=== PATIENT | female | born 1975 | race African-American/Black ===

== ENCOUNTER 2021-02-20 23:25 | Emergency (ER) | payer MEDICAID, SELFPAY ==
--- NOTE | ~2021-02-20 | CT_ITS ---
EXAMINATION: CT ABDOMEN AND PELVIS WITHOUT CONTRAST CLINICAL INFORMATION: Right upper quadrant/epigastric pain COMPARISON: None TECHNIQUE: Multidetector volumetric imaging was performed from the superior aspect of the liver through the pubic symphysis. Sagittal and coronal reformatted images were obtained on the technologist's workstation. This CT examination was performed using dose optimization techniques as appropriate, variously including the following: *Automated exposure control *Adjustment of mA and/or kV according to patient size (this includes techniques or standardized protocols for targeted exams where dose is matched to indication/reason for exam; i.e. extremities or head) *Use of iterative reconstruction technique DLP: 660 mGy-cm FINDINGS: LUNG BASES: The visualized lung bases are unremarkable. LIVER, GALLBLADDER, AND BILIARY TREE: The liver is normal in size, shape, and attenuation. No focal hepatic lesion or biliary ductal dilatation is present. Cholelithiasis. Gallbladder is contracted. No pericholecystic inflammation. PANCREAS: Unremarkable. SPLEEN: Unremarkable. ADRENAL GLANDS: Unremarkable. KIDNEYS AND URETERS: The kidneys are normal in size, shape, and attenuation. No hydronephrosis, hydroureter, or calculi seen. No perinephric stranding. BLADDER: Unremarkable. GASTROINTESTINAL TRACT: The small and large bowel are unremarkable. The appendix is unremarkable. ABDOMINAL WALL: No significant hernia is appreciated. LYMPH NODES: Normal. VASCULAR: There is a 1.3 cm right renal artery aneurysm and a 0.9 centimeter left renal artery aneurysm. Aorta is normal caliber. PELVIC VISCERA: Uterus and adnexa grossly unremarkable. OSSEOUS STRUCTURES: Unremarkable. CT/CT abdomen pelvis wo con IMPRESSION: Cholelithiasis without CT evidence of cholecystitis. Bilateral renal artery aneurysms as described.
--- NOTE | ~2021-02-20 | XR_ITS ---
EXAMINATION: XR CHEST CLINICAL INFORMATION: Cough COMPARISON: None TECHNIQUE: 2 views of the chest were obtained. FINDINGS: No significant abnormality is noted involving the heart, lungs, mediastinum, bony thorax or soft tissues. XR/XR chest 2V IMPRESSION: Unremarkable examination.
[2021-02-21 02:09] VITALS: BP 183/69; PULSE 82; RESP 16; O2SAT 100
[2021-02-21 02:14] VITALS: BP 154/66; PULSE 83; RESP 22; TEMP 37.1; O2SAT 99; BMI 28.9
[2021-02-21 02:36] LABS: Basophils Absolute Auto 0.1 X10*3/uL (0.0-0.2); Basophils Percent Auto 0.5 % (0-2); Eosinophils Absolute Auto 0.2 X10*3/uL (0.0-0.4); Eosinophils Percent Auto 1.3 % (0-4); Hematocrit 28.3 % (37-47); Hemoglobin 9.1 g/dl (12.0-16.0); Imm Gran Abs Auto 0.11 X10*3/uL (0.00-0.03); Imm Gran Pct Auto 0.8 % (0.0-0.4); Lymphocytes Absolute Auto 2.1 X10*3/uL (1.2-4.9); Lymphocytes Percent Auto 15.9 % (20-40); Mean Corpuscular HGB Conc 32.2 g/dl (31.0-35.0); Mean Corpuscular Hemoglobin 25.3 pg (27.0-33.0); Mean Corpuscular Volume 78.6 fL (80-98); Mean Platelet Volume 11.6 fL (9.4-12.3); Monocytes Absolute Auto 0.9 X10*3/uL (0.1-1.2); Neutrophils Percent Auto 74.5 % (45-73); PLT CLUMP 1; Red Cell Distribution Width 15.3 % (11.0-16.0); SCAN SMEAR FLAG 1
[2021-02-21 02:38] LABS: White Blood Count 13.4 X10*3/uL (4.8-10.8)
[2021-02-21 02:39] LABS: MANUAL DIFF FLAG NO
[2021-02-21 02:52] LABS: Platelet Count 216 X10*3/uL (160-400)
[2021-02-21 02:58] LABS: Alanine Aminotransferase 61 U/L (0-31); Albumin Level 2.5 g/dL (3.5-5.0); Alkaline Phosphatase 326 U/L (39-117); Anion Gap 14 (12-20); Aspartate Amino Transferase 33 U/L (5-31); Bilirubin Total 0.2 mg/dL (0.0-1.0); Blood Urea Nitrogen 27 mg/dL (9-16); Calcium 8.1 mg/dL (8.4-10.2); Carbon Dioxide 14 mmol/L (22-29); Chloride 104 mmol/L (96-108); Creatinine Clr Calc Pharmacy 26.6; Estimated Glomerular Filt Rate 17; Glucose Random 565 mg/dL (60-115); Potassium 3.7 mmol/L (3.3-5.1); Sodium 128 mmol/L (135-145); Total Protein 5.3 g/dL (6.5-8.0)
--- NOTE | 2021-02-21 02:58 | ED_ITS ---
HPI - Abdominal Pain General Chief Complaint: Abdominal Pain Stated Complaint: abd and chest pain Time Seen by Provider: 02/21/21 02:56 Source: patient Mode of arrival: ambulatory History of Present Illness HPI narrative: 45-year-old female presents with right upper quadrant, epigastric pain since this morning with nausea but no vomiting and states that the pain is sharp in nature and radiates into her right infra scapular area and that this is the 1st time that she has had this pain. She also states that she has had some burning sensation up into her esophagus but otherwise denies any fever or chills, shortness of breath, chest pain/palpitations or diarrhea. Related Data Previous Rx's Medication Instructions Recorded cefixime 400 mg capsule 400 mg PO DAILY 10 Days #10 cap 02/21/21 Allergies Allergy/AdvReac Type Severity Reaction Status Date / Time No Known Allergies Allergy Verified 02/21/21 02:13 Review of Systems Review of Systems Pertinent positives and negatives as stated in HPI 10 point review of systems is otherwise negative. Physical Exam Vital Signs: Vital Signs: Last Vital Signs Temp 98.7 F 02/21/21 02:14 Pulse 72 02/21/21 05:39 Resp 16 02/21/21 05:39 BP 122/49 L 02/21/21 05:39 Pulse Ox 100 02/21/21 04:00 Body Mass Index 28.9 VITAL SIGNS: Reviewed. GENERAL: Well developed, well nourished, in no acute distress. HEAD: Normocephalic/atraumatic EYES: PERRLA, EOMI EARS: Ext canals without abnormality NOSE: Nares patent bilateral OROPHARYNX: no oral lesions noted, posterior pharynx clear LUNGS: Normal breath sounds. No adventitious sounds or accessory muscle use. SpO2<99> CARDIOVASCULAR: Regular rate and rhythm without noted murmurs, no JVD or lower extremity edema. ABDOMEN: Soft, tenderness right upper quadrant/epigastric non-distended with bowel sounds Prosthetic leg SKIN: Inspection of the skin reveals no rashes NEUROLOGIC: Alert and oriented x 4. Strength and sensation to light touch were grossly intact x 4. Course Course Course Narrative: 45-year-old female with history and clinical presentation consistent with cholecystitis, choledocholithiasis with possible pancreatitis. On review of investigations there are no acute findings to suggest any gallbladder pathologies and instead appears to be a pyelonephritis. Patient received initial antibiotics in the emergency room and will be discharged with remaining course. Patient was IV fluid resuscitated and repeat BMP showed significant improvement. Patient received 10 units of subcu insulin for hypergl ycemia and otherwise negative for DKA or HHS. She was discharged home in stable condition MDM - Abdominal Pain Lab Data Result diagrams: 02/21/21 02:31 02/21/21 05:56 Labs: Lab Results 02/21/21 02/21/21 02/21/21 Range/Units 02:31 02:31 03:03 WBC 13.4 H (4.8-10.8) X10*3/uL RBC 3.60 L (4.20-5.50) X10*6/uL Hgb 9.1 L (12.0-16.0) g/dl Hct 28.3 L (37-47) % MCV 78.6 L (80-98) fL MCH 25.3 L (27.0-33.0) pg MCHC 32.2 (31.0-35.0) g/dl RDW 15.3 (11.0-16.0) % Plt Count 216 (160-400) X10*3/uL MPV 11.6 (9.4-12.3) fL Immature Gran % (Auto) 0.8 H (0.0-0.4) % Neut % (Auto) 74.5 H (45-73) % Lymph % (Auto) 15.9 L (20-40) % [place] % (Auto) 7.0 (2-11) % Eos % (Auto) 1.3 (0-4) % Baso % (Auto) 0.5 (0-2) % Lymph # (Auto) 2.1 (1.2-4.9) X10*3/uL [place] # (Auto) 0.9 (0.1-1.2) X10*3/uL Eos # (Auto) 0.2 (0.0-0.4) X10*3/uL Baso # (Auto) 0.1 (0.0-0.2) X10*3/uL Abs Immat Gran (auto) 0.11 H (0.00-0.03) X10*3/uL Absolute Neuts (auto) 10.0 H (2.0-8.3) X10*3/uL Absolute Nucleated RBC 0.000 (0.0-0.012) X10*3/uL Nucleated RBC % (auto) 0.0 (0.0-0.2) /100WBC Sodium 128 L (135-145) mmol/L Potassium 3.7 (3.3-5.1) mmol/L Chloride 104 (96-108) mmol/L Carbon Dioxide 14 L (22-29) mmol/L Anion Gap 14 (12-20) BUN 27 H (9-16) mg/dL Creatinine 3.00 H (0.5-1.4) mg/dL Estim Creat Clear Calc 26.6 Estimated GFR 17 POC Glucose (60-115) mg/dL Random Glucose 565 H* (60-115) mg/dL Lactic Acid (0.5-2.0) mmol/L Calcium 8.1 L (8.4-10.2) mg/dL Total Bilirubin 0.2 (0.0-1.0) mg/dL AST 33 H (5-31) U/L ALT 61 H (0-31) U/L Alkaline Phosphatase 326 H (39-117) U/L Total Protein 5.3 L (6.5-8.0) g/dL Albumin 2.5 L (3.5-5.0) g/dL Lipase 13 (8-78) U/L Urine Color YELLOW Urine Appearance CLOUDY Urine pH 6.0 (5.0-8.0) Ur Specific [place] 1.010 (1.005-1.025) Urine Protein 3+ H (NEG-TRACE) MG/DL Urine Glucose (UA) >=1000 H (NEG) MG/DL Urine Ketones NEG (NEG) MG/DL Urine Blood 2+ H (NEG) Urine Nitrite NEG (NEG) Ur Leukocyte Esterase NEG (NEG) Urine RBC 0 (0) /HPF Urine WBC 50-75 H (0-4) /HPF Ur Squamous Epith Cells 1+ /LPF Urine Bacteria 3+ /LPF Urine Test (NEGATIVE) Acetone, Qual Negative (Negative) COVID-19 ([facility]) (Negative) COVID-19 Clin Com 02/21/21 02/21/21 02/21/21 Range/Units 03:03 03:15 03:15 WBC (4.8-10.8) X10*3/uL RBC (4.20-5.50) X10*6/uL Hgb (12.0-16.0) g/dl Hct (37-47) % MCV (80-98) fL MCH (27.0-33.0) pg MCHC (31.0-35.0) g/dl RDW (11.0-16.0) % Plt Count (160-400) X10*3/uL MPV (9.4-12.3) fL Immature Gran % (Auto) (0.0-0.4) % Neut % (Auto) (45-73) % Lymph % (Auto) (20-40) % [place] % (Auto) (2-11) % Eos % (Auto) (0-4) % Baso % (Auto) (0-2) % Lymph # (Auto) (1.2-4.9) X10*3/uL [place] # (Auto) (0.1-1.2) X10*3/uL Eos # (Auto) (0.0-0.4) X10*3/uL Baso # (Auto) (0.0-0.2) X10*3/uL Abs Immat Gran (auto) (0.00-0.03) X10*3/uL Absolute Neuts (auto) (2.0-8.3) X10*3/uL Absolute Nucleated RBC (0.0-0.012) X10*3/uL Nucleated RBC % (auto) (0.0-0.2) /100WBC Sodium (135-145) mmol/L Potassium (3.3-5.1) mmol/L Chloride (96-108) mmol/L Carbon Dioxide (22-29) mmol/L Anion Gap (12-20) BUN (9-16) mg/dL Creatinine (0.5-1.4) mg/dL Estim Creat Clear Calc Estimated GFR POC Glucose (60-115) mg/dL Random Glucose (60-115) mg/dL Lactic Acid 1.2 (0.5-2.0) mmol/L Calcium (8.4-10.2) mg/dL Total Bilirubin (0.0-1.0) mg/dL AST (5-31) U/L ALT (0-31) U/L Alkaline Phosphatase (39-117) U/L Total Protein (6.5-8.0) g/dL Albumin (3.5-5.0) g/dL Lipase (8-78) U/L Urine Color Urine Appearance Urine pH (5.0-8.0) Ur Specific [place] (1.005-1.025) Urine Protein (NEG-TRACE) MG/DL Urine Glucose (UA) (NEG) MG/DL Urine Ketones (NEG) MG/DL Urine Blood (NEG) Urine Nitrite (NEG) Ur Leukocyte Esterase (NEG) Urine RBC (0) /HPF Urine WBC (0-4) /HPF Ur Squamous Epith Cells /LPF Urine Bacteria /LPF Urine Test NEGATIVE (NEGATIVE) Acetone, Qual (Negative) COVID-19 ([facility]) Negative (Negative) COVID-19 Clin Com See Note 02/21/21 02/21/21 02/21/21 Range/Units 05:51 05:56 07:48 WBC (4.8-10.8) X10*3/uL RBC (4.20-5.50) X10*6/uL Hgb (12.0-16.0) g/dl Hct (37-47) % MCV (80-98) fL MCH (27.0-33.0) pg MCHC (31.0-35.0) g/dl RDW (11.0-16.0) % Plt Count (160-400) X10*3/uL MPV (9.4-12.3) fL Immature Gran % (Auto) (0.0-0.4) % Neut % (Auto) (45-73) % Lymph % (Auto) (20-40) % [place] % (Auto) (2-11) % Eos % (Auto) (0-4) % Baso % (Auto) (0-2) % Lymph # (Auto) (1.2-4.9) X10*3/uL [place] # (Auto) (0.1-1.2) X10*3/uL Eos # (Auto) (0.0-0.4) X10*3/uL Baso # (Auto) (0.0-0.2) X10*3/uL Abs Immat Gran (auto) (0.00-0.03) X10*3/uL Absolute Neuts (auto) (2.0-8.3) X10*3/uL Absolute Nucleated RBC (0.0-0.012) X10*3/uL Nucleated RBC % (auto) (0.0-0.2) /100WBC Sodium 131 L (135-145) mmol/L Potassium 3.3 (3.3-5.1) mmol/L Chloride 108 (96-108) mmol/L Carbon Dioxide 16 L (22-29) mmol/L Anion Gap 10 L (12-20) BUN 24 H (9-16) mg/dL Creatinine 2.77 H (0.5-1.4) mg/dL Estim Creat Clear Calc 28.8 Estimated GFR 18 POC Glucose 408 H* 369 H* (60-115) mg/dL Random Glucose 466 H* (60-115) mg/dL Lactic Acid (0.5-2.0) mmol/L Calcium 7.5 L D (8.4-10.2) mg/dL Total Bilirubin (0.0-1.0) mg/dL AST (5-31) U/L ALT (0-31) U/L Alkaline Phosphatase (39-117) U/L Total Protein (6.5-8.0) g/dL Albumin (3.5-5.0) g/dL Lipase (8-78) U/L Urine Color Urine Appearance Urine pH (5.0-8.0) Ur Specific [place] (1.005-1.025) Urine Protein (NEG-TRACE) MG/DL Urine Glucose (UA) (NEG) MG/DL Urine Ketones (NEG) MG/DL Urine Blood (NEG) Urine Nitrite (NEG) Ur Leukocyte Esterase (NEG) Urine RBC (0) /HPF Urine WBC (0-4) /HPF Ur Squamous Epith Cells /LPF Urine Bacteria /LPF Urine Test (NEGATIVE) Acetone, Qual (Negative) COVID-19 ([facility]) (Negative) COVID-19 Clin Com Discharge Plan Discharge Clinical Impression: Pyelonephritis, Hyperglycemia Patient Disposition: Home, Self-Care Instructions: Kidney Infection (ED), Diabetic Hyperglycemia (ED) Additional Instructions: 1. Resume all home medications as prescribed. 2. Complete the entire course of antibiotics. 3. Continue to drink water. 4. Follow-up with your primary care provider in the next 2-3 days for re- evaluation. Return to the ER for acute worsening of symptoms. Prescriptions: New cefixime 400 mg capsule 400 mg PO DAILY 10 Days Qty: 10 RF: 0 Referrals: Physician,Unknown [Primary Care Provider] - 2 days PMFSH Past Medical History Source: nursing notes reviewed Social History Social History Alcohol intake: never Patient Tobacco Use Status: Current everyday Tobacco user Smoked in Last 30 Days: Yes Use of substances other than those prescribed or required for medical reasons: No Advance Directives: No Patient : No
[2021-02-21 03:08] LABS: Appearance Urine CLOUDY; Color Urine YELLOW; Glucose Urine UA >=1000 MG/DL (NEG); Leukocyte Esterase Urine NEG (NEG); Nitrite Urine NEG (NEG); UACC Culture Trigger NO; Urine Blood 2+ (NEG); Urine Ketones NEG (NEG); Urine Pregnancy NEGATIVE (NEGATIVE); Urine Protein 3+ MG/DL (NEG-TRACE)
[2021-02-21 03:09] LABS: UPreg QC Valid YES
[2021-02-21 03:10] LABS: Acetone, serum QL Negative (Negative)
[2021-02-21 03:14] LABS: Bacteria Urine 3+ /LPF; RBC Urine 0 /HPF (0); Squamous Epithelial Cell Urine 1+ /LPF; UACC CULT YES; WBC Urine 50-75 /HPF (0-4)
[2021-02-21] MEDS: 0.9 % Sodium Chloride 2,000 ML 999 ML IV (03:24)
[2021-02-21 03:33] LABS: Lactic Acid 1.2 mmol/L (0.5-2.0)
[2021-02-21 03:35] LABS: COVID-19 Test Negative (Negative); IDNOW Serial# 9DD0AD1C
[2021-02-21 04:00] VITALS: BP 169/62; PULSE 84; RESP 16; O2SAT 100
[2021-02-21] MEDS: Acetaminophen 325 MG TABLET 975 MG PO (04:06)
[2021-02-21] MEDS: Ketorolac Tromethamine 15 MG/ML VIAL IVPUSH (04:07)
[2021-02-21] MEDS: Piperacillin Sodium/Tazobactam 3.375 GM in 0.9 % Sodium Chloride 50 ML IV (04:07)
[2021-02-21 04:56] LABS: Lipase 13 U/L (8-78)
[2021-02-21 05:37] VITALS: BP 122/49; PULSE 73; RESP 16
[2021-02-21 05:39] VITALS: BP 122/49; PULSE 72; RESP 16
[2021-02-21] MEDS: Lidocaine HCl Viscous 2 % 15 ML SOLUTION 10 ML MUCOUS MEM (05:43)
[2021-02-21] MEDS: Magnesium Hydrox/Alum Hydrox 30 ML ORAL.SUSP PO (05:43)
[2021-02-21 05:58] LABS: Glucose, Whole Blood 408 mg/dL (60-115)
[2021-02-21 06:41] LABS: Anion Gap 10 (12-20); Blood Urea Nitrogen 24 mg/dL (9-16); Calcium 7.5 mg/dL (8.4-10.2); Carbon Dioxide 16 mmol/L (22-29); Chloride 108 mmol/L (96-108); Creatinine Clr Calc Pharmacy 28.8; Estimated Glomerular Filt Rate 18; Glucose Random 466 mg/dL (60-115); Potassium 3.3 mmol/L (3.3-5.1); Sodium 131 mmol/L (135-145)
[2021-02-21] MEDS: Insulin Lispro 100 UNIT/ML 3 ML VIAL 10 UNIT SUBCUT (07:22)
[2021-02-21 07:51] LABS: Glucose, Whole Blood 369 mg/dL (60-115)
[2021-02-21 08:00] VITALS: BP 120/53; PULSE 79; TEMP 37.1; O2SAT 98
== END 2021-02-21 09:00 | disposition home or self-care (01) ==
PROVIDERS: Emergency Provider Student in an Organized Health Care Education/Training Program
DX: N12 Tubulo-interstitial nephritis, not specified as acute or chronic (principal); R10.11 Right upper quadrant pain; R10.13 Epigastric pain; F17.210 Nicotine dependence, cigarettes, uncomplicated; Z79.899 Other long term (current) drug therapy; Z20.822 Contact with and (suspected) exposure to COVID-19; Z71.6 Tobacco abuse counseling
CPT/HCPCS: 36415; 71046; 74176; 80048; 80053; 81001; 81025; 82009; 82947; 83605; 83690; 85025; 87040; 87086; 87147; 87635; 96361; 96365; 96375; 99284; 99285; J1885; J2543